=== PATIENT | male | born 1980 | race Caucasian/White ===

== ENCOUNTER 2024-02-26 20:55 | Emergency (ER) | payer OTHER ==
[2024-02-26] MEDS ORDERED: LIDOCAINE 1% MPF 5 ML VIAL ONE (21:17)
--- NOTE | 2024-02-26 21:28 | EDPHYS ---
Physician Documentation [facility] Name: Nuno Schafer Age: 43 yrs Sex: Male : 1980 Arrival Date: 02/26/2024 Time: 20:55 Bed 6 Private MD: ED Physician Trae Rasheed HPI: 02/25 23:43 This 43 yrs old Male presents to ER via Ambulatory with complaints of fishhook in scalp.kb 23:43 Pt is a 43 year old male who presents for a fishhook in the back of his scalp. States kb he was casting and accidentally hooked himself. Denies any other injury. Historical: - Allergies: 21:00 No Known Allergies; lg3 - Home Meds: 21:00 Zoloft Oral [Active]; levothyroxine oral [Active]; Lisinopril Oral [Active]; lg3 - PMHx: 21:00 HTN; Hypothyroidism; Anxiety; lg3 - PSHx: 21:00 knee; lg3 - Immunization history:: Adult Immunizations up to date, Last tetanus immunization: up to date. - Infectious Disease History:: Denies. - Social history:: Smoking status: Patient denies any tobacco usage or history of. Patient/guardian denies using alcohol, street drugs. ROS: 23:42 Constitutional: As per HPI kb Exam: 23:42 Constitutional: This is a well developed, well nourished patient who is awake, alert, kb and in no acute distress. Head/Face: Normocephalic, atraumatic. ENT: Moist Mucous membranes Cardiovascular: Regular rate Respiratory: Respirations even and unlabored. No increased work of breathing. Talking in full sentences MS/ Extremity: Pulses equal, no cyanosis. Neurovascular intact. Full, normal range of motion. Neuro: Awake and alert, GCS 15, oriented to person, place, time, and situation. Moves all extremities. Normal gait. 23:42 Skin: injury, puncture(s), that are superficial, of the scalp, with fishhook, Vital Signs: 20:59 BP 162 / 96; Pulse 81; Resp 17 S; Temp 97.1(O); Pulse Ox 98% on R/A; Weight 97.52 kg lg3 (R); Height 6 ft. 1 in. (R); Pain 0/10; 20:59 Body Mass Index 28.37 (97.52 kg, 185.42 cm) lg3 20:59 Pain Scale: Adult lg3 Procedures: 23:43 Foreign Body Removal: a fishhook, from the scalp, by 2ml lidocaine injected, sujatha kb pushed through the scalp, cut off and hook removed. The patient tolerated the removal well. MDM: 21:01 Patient medically screened. kb 23:43 Data reviewed: vital signs, nurses notes. Counseling: I had a detailed discussion with kb the patient and/or guardian regarding the historical points, exam findings, and any diagnostic results supporting the discharge/admit diagnosis, the need for outpatient follow up, a family practitioner, to return to the emergency department if symptoms worsen or persist or if there are any questions or concerns that arise at home. Administered Medications: 21:20 Drug: Lidocaine Infiltration (1 %) 1 vials 5 ml Infiltration once; to bedside {Note: jb4 administered by ER provider..} Volume: 5 ml; Route: Infiltration; Disposition Summary: 02/26/24 21:28 Discharge Ordered Notes: Location: Home kb Condition: Stable kb Diagnosis - Puncture wound with foreign body of scalp, initial encounter kb Followup: kb - With: Emergency Department - When: As needed - Reason: Worsening of condition Followup: kb - With: Private Physician - When: 2 - 3 days - Reason: Recheck today's complaints, Continuance of care, Re-evaluation by your physician Discharge Instructions: - Discharge Summary Sheet kb - Puncture Wound, [id number] kb - Aucilla Removal kb Forms: - Medication Reconciliation Form kb - Antibiotic Education kb - Prescription Opioid Use kb - Patient Portal Instructions kb - Leadership Thank You Letter kb Addendum: 02/28/2024 01:17 I was immediately available for consultation during this patient's visit. I did not e c2 personally see the patient or discuss the patient with the LORNA. . Signatures: Shae Eaton, NICOLE FR[place]-Ezequiel Fraser, RN RN jb4 Bhakti Gold RN RN lg3 Trae Rasheed MD MD ec2
--- NOTE | 2024-02-26 21:28 | ER ---
Nurse's Notes [facility] Name: Nuno Schafer Age: 43 yrs Sex: Male : 1980 Arrival Date: 02/26/2024 Time: 20:55 Bed 6 Private MD: Diagnosis: Puncture wound with foreign body of scalp, initial encounter Presentation: 02/25 20:59 Chief complaint: Patient states: fish hook to back of scalp. bleeding controlled. lg3 Coronavirus screen: Client denies travel out of the [place] in the last 14 days. At this time, the client does not indicate any symptoms associated with coronavirus-19. Ebola Screen: No symptoms or risks identified at this time. Initial Sepsis Screen: Does the patient meet any 2 criteria? No. Patient's initial sepsis screen is negative. Does the patient have a suspected source of infection? No. Patient's initial sepsis screen is negative. Risk Assessment: Do you want to hurt yourself or someone else? Patient reports no desire to harm self or others. Onset of symptoms was February 26, 2024. 20:59 Method Of Arrival: Ambulatory lg3 20:59 Acuity: SATNAM 4 lg3 Triage Assessment: 21:00 General: Appears in no apparent distress. comfortable, Behavior is calm, cooperative. lg3 Pain: Denies pain. EENT: No deficits noted. No signs and/or symptoms were reported regarding the EENT system. Neuro: No deficits noted. Curtis Agitation-Sedation Scale (RASS): 0 - Alert and Calm Level of Consciousness is awake, alert, obeys commands, Oriented to person, place, time, situation. Cardiovascular: No deficits noted. Denies chest pain, shortness of breath, Capillary refill < 3 seconds Clubbing of nail beds is absent JVD is absent Patient's skin is warm and dry. Respiratory: No deficits noted. Airway is patent Respiratory effort is even, unlabored, Respiratory pattern is regular, symmetrical. GI: No deficits noted. No signs and/or symptoms were reported involving the gastrointestinal system. : No deficits noted. No signs and/or symptoms were reported regarding the genitourinary system. Derm: Skin is intact, is healthy with good turgor, Skin is dry, Skin is normal, Skin temperature is cool Wound noted scalp. Musculoskeletal: No deficits noted. No signs and/or symptoms reported regarding the musculoskeletal system. Circulation, motion, and sensation intact. Range of motion: intact in all extremities. Historical: - Allergies: 21:00 No Known Allergies; lg3 - Home Meds: 21:00 Zoloft Oral [Active]; levothyroxine oral [Active]; Lisinopril Oral [Active]; lg3 - PMHx: 21:00 HTN; Hypothyroidism; Anxiety; lg3 - PSHx: 21:00 knee; lg3 - Immunization history:: Adult Immunizations up to date, Last tetanus immunization: up to date. - Infectious Disease History:: Denies. - Social history:: Smoking status: Patient denies any tobacco usage or history of. Patient/guardian denies using alcohol, street drugs. Screenin:12 [facility] ED Fall Risk Assessment (Adult) History of falling in the last 3 months, jb4 including since admission No falls in past 3 months (0 pts) Confusion or Disorientation No (0 pts) Intoxicated or Sedated No (0 pts) Impaired Gait No (0 pts) Mobility Assist Device Used No (0 pt) Altered Elimination No (0 pt) Score/Fall Risk Level 0 - 2 = Low Risk Oriented to surroundings, Maintained a safe environment. Abuse screen: Denies threats or abuse. Nutritional screening: No deficits noted. Tuberculosis screening: No symptoms or risk factors identified. Assessment: 21:12 General: Appears in no apparent distress. comfortable, Behavior is calm, cooperative, jb4 appropriate for age. Pain: Denies pain. Neuro: Level of Consciousness is awake, alert, obeys commands, Oriented to person, place, time, situation. Cardiovascular: Patient's skin is warm and dry. Respiratory: Airway is patent Respiratory effort is even, unlabored, Respiratory pattern is regular, symmetrical. GI: No signs and/or symptoms were reported involving the gastrointestinal system. : No signs and/or symptoms were reported regarding the genitourinary system. EENT: No signs and/or symptoms were reported regarding the EENT system. Derm: Skin is intact, Skin is pink, warm \T\ dry. Musculoskeletal: Circulation, motion, and sensation intact. Range of motion: intact in all extremities. Injury Description: fish hook in the back of scalp. Vital Signs: 20:59 BP 162 / 96; Pulse 81; Resp 17 S; Temp 97.1(O); Pulse Ox 98% on R/A; Weight 97.52 kg lg3 (R); Height 6 ft. 1 in. (R); Pain 0/10; 20:59 Body Mass Index 28.37 (97.52 kg, 185.42 cm) lg3 20:59 Pain Scale: Adult lg3 ED Course: 20:59 Patient arrived in ED. lg3 21:00 Triage completed. lg3 21:00 Arm band placed on right wrist. lg3 21:01 Shae Eaton FNP-C is [facility]. kb 21:01 Trae Rasheed MD is Attending Physician. kb 21:02 Ezequiel Aguilar, RN is Primary Nurse. jb4 21:12 Patient has correct armband on for positive identification. Bed in low position. Call jb4 light in reach. Side rails up X 1. Provided Education on: plan of care. 21:12 Patient did not have IV access during this emergency room visit. jb4 21:34 No provider procedures requiring assistance completed. jb4 Administered Medications: 21:20 Drug: Lidocaine Infiltration (1 %) 1 vials 5 ml Infiltration once; to bedside {Note: jb4 administered by ER provider..} Volume: 5 ml; Route: Infiltration; Medication: 21:12 VIS not applicable for this client. jb4 Outcome: 21:28 Discharge ordered by MD. kb 21:34 Discharged to home ambulatory, jb4 21:34 Condition: stable 21:34 Discharge instructions given to patient, Instructed on discharge instructions, follow up and referral plans. Demonstrated understanding of instructions, follow-up care, 21:35 Patient left the ED. jb4 Signatures: Shae Eaton FNP-C FNP-Ezequiel Fraser, RN RN jb4 Bhakti Gold RN RN lg3
[2024-02-26 22:29] VITALS: BP 162/96; TEMP 97.1; O2SAT 98
== END 2024-02-26 21:35 | disposition home or self-care (01) ==
LOC: ER 20:55
DX: S01.04XA Puncture wound with foreign body of scalp, initial encounter (principal)
CPT/HCPCS: 99283; J2001

== ENCOUNTER 2024-07-14 08:24 | Emergency (ER) | payer OTHER ==
[2024-07-14 08:58] LABS: Absolute Eosinophils 0.1 K/uL (0-0.5); Absolute Lymphocytes (CBC) 2.7 K/uL (0.7-4.9); Absolute Monocytes 0.5 K/uL (0.1-1.3); Absolute Neutrophil 3.1 K/uL (1.8-8.0); Basophils % 0.5 % (0-1.3); Eosinophils % 1.4 % (0-4.4); Hematocrit 42.3 % (39.6-49.0); Hemoglobin 14.2 g/dL (13.6-17.9); Lymphocytes % 42.3 % (15.3-44.8); MCH 31.3 pg (27.0-35.0); MCHC 33.5 g/dL (32.0-36.0); MCV 93.5 fL (80-100); MPV 8.2 fL (7.6-11.3); Neutrophils % 47.8 % (41.7-73.7); Platelets 237 thou/uL (152-406); RBC Red Blood Cell Count 4.53 M/uL (4.33-5.43); Red Cell Distribution Width 13.8 % (12.1-15.2)
[2024-07-14] MEDS ORDERED: KETOROLAC 30 MG/ML INJ ONE ×2 (08:59→11:51)
[2024-07-14] MEDS ORDERED: ONDANSETRON 4 MG/2 ML VIAL ONE ×2 (08:59→11:54)
[2024-07-14] MEDS ORDERED: MORPHINE 4 MG/ML SYR ONE ×2 (08:59→11:52)
[2024-07-14] MEDS ORDERED: NA CHLORIDE 0.9% 1,000 ML ONE (09:00)
[2024-07-14 09:14] LABS: Albumin 4.3 g/dL (3.4-5.0); Albumin/Globulin Ratio 1.1 (1.1-1.8); Anion Gap 10.2 mEq/L (5.0-15.0); Bilirubin Total 0.7 mg/dL (0.2-1.0); Globulin 3.8 g/dL (2.3-3.5); Potassium 4.2 mEq/L (3.5-5.1); Protein, Total 8.1 g/dL (6.4-8.2)
--- NOTE | 2024-07-14 09:15 | RAD REPORT ---
EXAMINATION: CT ABDOMEN AND PELVIS WITHOUT CONTRAST CLINICAL INDICATION: L side abd pain TECHNIQUE: CT abdomen and pelvis was performed, without IV contrast, as per department protocol. Axia l, sagittal and coronal reconstructions were obtained. One or more of the following dose reduction techniques were used: Automated exposure control, adjustment of the mA and kV according to the patien t size, and iterative reconstruction. Unless otherwise specified, incidental findings do not require dedicated imaging follow-up. COMPARISON: No prior exam. FINDINGS: The lack of intravenous contrast limits the sensitivity of this exam for evaluation of solid visceral organs, vascular structures, and retroperitoneum. LOWER CHEST: The visualized lung bases are clear. LIVER: Diffuse fatty liver. SPLEEN: Normal size. No focal lesion. PANCREAS: No mass, ductal dilation, or marty-pancreatic fluid. ADRENALS: Normal; no mass. KIDNEYS AND URETERS: Mild left hydronephrosis and hydroureter. This is likely caused by a 2 mm stone recently passed and now located in the urinary bladder. No right-sided stone or hydronephrosis. URINARY BLADDER: Normal contour. GASTROINTESTINAL TRACT: No evidence of bowel obstruction, significant free fluid, free air or abscess . APPENDIX: Normal appendix. LYMPH NODES: No lymphadenopathy. MUSCULOSKELETAL: No acute or suspicious osseous abnormality. ADDITIONAL FINDINGS: None. IMPRESSION: Suspected recently passed 2 mm stone in the urinary bladder, likely passed from the left tract wer e mild left-sided residual hydronephrosis is seen.
[2024-07-14] MEDS ORDERED: FENTANYL CITR 100 MCG/2 ML ONE (09:26)
[2024-07-14 11:17] LABS: Specific Gravity 1.025 (1.005-1.030); Sqamous Epithelial <5 /HPF (None Seen); Urine Bacteria None Seen /HPF (<20); Urine Bilirubin NEGATIVE (Negative); Urine Blood Trace (Negative); Urine Clarity Extremely Turbid (Clear); Urine Color Light-Yellow (Yellow); Urine Culture Reflex Order NOT NEEDED; Urine Glucose NEGATIVE (Negative); Urine Ketones NEGATIVE (Negative); Urine Microscopic Reflex YN ORDER UMIC; Urine Mucus Slight /HPF (None Seen); Urine Nitrite NEGATIVE (Negative); Urine Protein TRACE (Negative); Urine RBC <5 /HPF (None Seen); Urine Urobilinogen Normal (Normal); Urine WBC <5 /HPF (<5); Urine pH 5.5 (5.0-7.0)
--- NOTE | 2024-07-14 12:07 | ER ---
Nurse's Notes [facility] Name: Nuno Schafer Age: 43 yrs Sex: Male : 1980 Arrival Date: 07/14/2024 Time: 08:24 Bed 5 Private MD: Diagnosis: Calculus of ureter Presentation: 07/14 08:37 Chief complaint: Patient states: he started having left lower abdominal pain that ap3 started suddenly this morning when driving his kids to school. patient rates his pain as a 10/10 on the pain scale at this time. patient also reports vomiting x's 2 CREW BOSS. Coronavirus screen: At this time, the client does not indicate any symptoms associated with coronavirus-19. Ebola Screen: No symptoms or risks identified at this time. Initial Sepsis Screen: Does the patient meet any 2 criteria? No. Patient's initial sepsis screen is negative. Does the patient have a suspected source of infection? No. Patient's initial sepsis screen is negative. Risk Assessment: Do you want to hurt yourself or someone else? Patient reports no desire to harm self or others. Onset of symptoms was July 14, 2024. Transition of care: patient was not received from another setting of care. 08:37 Method Of Arrival: Ambulatory ap3 08:37 Acuity: SATNAM 3 ap3 Triage Assessment: 08:42 General: Appears uncomfortable, Behavior is calm, cooperative, appropriate for age. ap3 Pain: Complains of pain in left lower quadrant Pain currently is 10 out of 10 on a pain scale. Pain began suddenly. Pain: Also complains of nausea. Neuro: Level of Consciousness is awake, alert, obeys commands. Cardiovascular: Patient's skin is warm and dry. Respiratory: Airway is patent Respiratory effort is even, unlabored, Respiratory pattern is regular, symmetrical. GI: Reports lower abdominal pain, nausea, vomiting. Historical: - Allergies: 08:41 No Known Allergies; ap3 - PMHx: 08:41 Anxiety; HTN; Hypothyroidism; ap3 - PSHx: 08:41 knee; ap3 - Immunization history:: Adult Immunizations unknown. - Infectious Disease History:: Denies. - Social history:: Smoking status: Patient denies any tobacco usage or history of. Screenin:42 [facility] ED Fall Risk Assessment (Adult) History of falling in the last 3 months, ap3 including since admission No falls in past 3 months (0 pts) Confusion or Disorientation No (0 pts) Intoxicated or Sedated No (0 pts) Impaired Gait No (0 pts) Mobility Assist Device Used No (0 pt) Altered Elimination No (0 pt) Score/Fall Risk Level 0 - 2 = Low Risk Oriented to surroundings, Maintained a safe environment, Educated pt \T\ family on fall prevention, incl call for assistance when getting out of bed, Assessed \T\ reinforced patient's understanding of fall precautions, Hourly rounding (assess needs \T\ fall precautionary measures) done, Used ambulatory aids as needed (educated on \T\ assisted with), Used gait belt as appropriate. Abuse screen: Denies threats or abuse. Nutritional screening: No deficits noted. Tuberculosis screening: No symptoms or risk factors identified. Assessment: 09:00 General: Appears in no apparent distress. uncomfortable, well groomed, Behavior is ph calm, cooperative. Pain: Complains of pain in left lower quadrant Pain began suddenly. Neuro: Level of Consciousness is awake, alert, obeys commands, Oriented to person, place, time, situation. Cardiovascular: Capillary refill < 3 seconds in bilateral fingers Patient's skin is warm and dry. Respiratory: Airway is patent Respiratory effort is even, unlabored. GI: Abdomen is non-distended, Reports lower abdominal pain, nausea, vomiting. : Reports pain in left lower quadrant(s). Derm: Skin is pink, warm \T\ dry. 12:26 Reassessment: Patient appears in no apparent distress at this time. Patient and/or ph family updated on plan of care and expected duration. Pain level reassessed. Patient is alert, oriented x 3, equal unlabored respirations, skin warm/dry/pink. Patient states feeling better. Vital Signs: 08:37 BP 168 / 102; Pulse 66; Resp 18; Temp 97.9(O); Pulse Ox 99% on R/A; Weight 97.52 kg; ap3 Height 72 in. ; Pain 10/10; 09:54 BP 148 / 99; Pulse 63; Resp 18; Pulse Ox 99% on R/A; ph 11:00 BP 138 / 77; Pulse 61; Resp 18; Pulse Ox 99% on R/A; ph 12:00 BP 129 / 87; Pulse 68; Resp 19; Temp 98; Pulse Ox 100% on R/A; ph 08:37 Body Mass Index 29.16 (97.52 kg, 182.88 cm) ap3 08:37 Pain Scale: Adult ap3 ED Course: 08:27 Patient arrived in ED. mg5 08:28 Trae Rasheed MD is Attending Physician. ec2 08:41 Triage completed. ap3 08:43 Arm band placed on right wrist. ap3 08:50 CBC with Diff Sent. em1 08:50 CMP Sent. em1 08:50 Lipase Sent. em1 08:50 Initial lab(s) drawn, by wa, sent to lab. Inserted saline lock: 20 gauge in right em1 antecubital area, using aseptic technique. Blood collected. Flushed with 10 mL NS. 08:56 India Gillis, BRANDO is Primary Nurse. ph 09:03 CT Abd/Pelvis - Without Contrast In Process Unspecified. EDMS 09:55 Patient has correct armband on for positive identification. Bed in low position. Call ph light in reach. Side rails up X 1. Pulse ox on. NIBP on. Door closed. Noise minimized. Warm blanket given. Pillow given. 12:06 Pedro Tolliver MD is Referral Physician. ec2 12:28 No provider procedures requiring assistance completed. IV discontinued, intact, ph bleeding controlled, No redness/swelling at site. Pressure dressing applied. Administered Medications: 09:00 Drug: TORadol - Ketorolac IVP 15 mg IVP once Route: IVP; Site: right antecubital; ph 09:30 Follow up: Response: No adverse reaction; Pain is unchanged, physician notified ph 09:00 Drug: Ondansetron IVP 4 mg IVP once; over 2 minutes Route: IVP; Site: right antecubital;ph 09:30 Follow up: Response: No adverse reaction; Nausea is decreased ph 09:00 Drug: morphine IVP or IV 4 mg IVP once over 4 mins Route: IVP; Infused Over: 4 mins; ph Site: right antecubital; 09:30 Follow up: Response: No adverse reaction; Pain is unchanged, physician notified ph 09:00 Drug: NS 0.9% IV 1000 ml IV at 1 bolus Per protocol; to be given as a bolus over 60 ph minutes Route: IV; Rate: 1 bolus; Site: right antecubital; 10:30 Follow up: Response: No adverse reaction; IV Status: Completed infusion; IV Intake: ph 1000ml 09:36 Drug: fentaNYL (PF) IVP 100 mcg IVP once Route: IVP; Site: right antecubital; ph 09:56 Follow up: Response: No adverse reaction; Pain is decreased; RASS: Alert and Calm (0) ph 11:59 Drug: morphine IVP or IV 4 mg IVP once over 4 mins Route: IVP; Infused Over: 4 mins; ph Site: right antecubital; 12:27 Follow up: Response: No adverse reaction; Pain is decreased; RASS: Alert and Calm (0) ph 11:59 Drug: Ketorolac IVP 15 mg IVP once Route: IVP; Site: right antecubital; ph 12:27 Follow up: Response: No adverse reaction; Pain is decreased ph Medication: 09:55 VIS not applicable for this client. ph Intake: 10:30 IV: 1000ml; Total: 1000ml. ph Outcome: 12:06 Discharge ordered by . ec2 12:28 Discharged to home ambulatory, with significant other, ph 12:28 Condition: good 12:28 Discharge instructions given to patient, significant other, Instructed on discharge instructions, follow up and referral plans. medication usage, Demonstrated understanding of instructions, follow-up care, medications, Prescriptions given X 3, 12:28 Patient left the ED. ph Signatures: Dispatcher [employer] Margarito Brooks em1 India Gillis RN RN Kathryn Arriaga RN RN ap3 Abby Martinez mg5 Trae Rasheed MD MD ec2 Corrections: (The following items were deleted from the chart) 09:39 09:38 Ondansetron IVP 4 mg IVP in right antecubital ph ph 09:39 09:38 TORadol - Ketorolac IVP 15 mg IVP in right antecubital ph ph 09:39 09:39 morphine IVP or IV 4 mg IVP in right antecubital over 4 mins ph ph 09:40 09:38 NS 0.9% IV 1000 ml IV at 1 bolus in right antecubital ph ph
--- NOTE | 2024-07-14 12:07 | EDPHYS ---
Physician Documentation [facility] Name: Nuno Schafer Age: 43 yrs Sex: Male : 1980 Arrival Date: 07/14/2024 Time: 08:24 Bed 5 Private MD: ED Physician Trae Rasheed HPI: 07/14 08:46 This 43 yrs old Male presents to ER via Ambulatory with complaints of ec2 Vomiting. 08:46 Patient arrives today for evaluation of nausea and vomiting along with left-sided ec2 abdominal pain. Patient reports that he has been having pain since earlier this morning, states that it was sudden onset, reports no urinary complaints, history of diverticulitis, denies previous abdominal surgeries. . Historical: - Allergies: 08:41 No Known Allergies; ap3 - PMHx: 08:41 Anxiety; HTN; Hypothyroidism; ap3 - PSHx: 08:41 knee; ap3 - Immunization history:: Adult Immunizations unknown. - Infectious Disease History:: Denies. - Social history:: Smoking status: Patient denies any tobacco usage or history of. ROS: 08:46 Constitutional: as per hpi ec2 Exam: 08:46 Constitutional: GEN: NAD Head: atraumatic Eyes: EOMI Ears: External ears are ec2 normal. CV: regular rate LUNGS: no respiratory distress ABD: non-distended, soft, tender left abdomen, no flank TTP, not guarding, not rigid SKIN: no evidence of rashes MSK: no evidence of trauma Vital Signs: 08:37 BP 168 / 102; Pulse 66; Resp 18; Temp 97.9(O); Pulse Ox 99% on R/A; Weight 97.52 kg; ap3 Height 72 in. ; Pain 10/10; 09:54 BP 148 / 99; Pulse 63; Resp 18; Pulse Ox 99% on R/A; ph 11:00 BP 138 / 77; Pulse 61; Resp 18; Pulse Ox 99% on R/A; ph 12:00 BP 129 / 87; Pulse 68; Resp 19; Temp 98; Pulse Ox 100% on R/A; ph 08:37 Body Mass Index 29.16 (97.52 kg, 182.88 cm) ap3 08:37 Pain Scale: Adult ap3 MDM: 08:46 Data reviewed: vital signs. ED course: Patient arrives today for evaluation of ec2 left-sided abdominal pain. Examination remarkable for abdominal findings as above. Will obtain lab work, urine studies, CT imaging. Differential includes processes such as diverticulitis, ureteral stone, appendicitis. 09:22 ED course: Metabolic profile shows renal dysfunction with a creatinine of 1.73. CBC ec2 reassuring. Lipase within normal ranges. CT of the abdomen pelvis shows likely recently passed 2 mm stone. Pending urine study . 12:06 Patient medically screened. ec2 07/14 08:41 Order name: CBC with Diff; Complete Time: 09:21 ec2 07/14 08:41 Order name: CMP; Complete Time: 09:21 ec2 07/14 08:41 Order name: Lipase; Complete Time: 09:21 ec2 07/14 08:41 Order name: Urinalysis w/ reflexes; Complete Time: 11:22 ec2 07/14 08:41 Order name: CT Abd/Pelvis - Without Contrast; Complete Time: 09:21 ec2 07/14 08:41 Order name: IV Saline Lock; Complete Time: 08:50 ec2 07/14 08:41 Order name: Labs collected and sent; Complete Time: 08:50 ec2 Administered Medications: 09:00 Drug: TORadol - Ketorolac IVP 15 mg IVP once Route: IVP; Site: right antecubital; ph 09:30 Follow up: Response: No adverse reaction; Pain is unchanged, physician notified ph 09:00 Drug: Ondansetron IVP 4 mg IVP once; over 2 minutes Route: IVP; Site: right antecubital;ph 09:30 Follow up: Response: No adverse reaction; Nausea is decreased ph 09:00 Drug: morphine IVP or IV 4 mg IVP once over 4 mins Route: IVP; Infused Over: 4 mins; ph Site: right antecubital; 09:30 Follow up: Response: No adverse reaction; Pain is unchanged, physician notified ph 09:00 Drug: NS 0.9% IV 1000 ml IV at 1 bolus Per protocol; to be given as a bolus over 60 ph minutes Route: IV; Rate: 1 bolus; Site: right antecubital; 10:30 Follow up: Response: No adverse reaction; IV Status: Completed infusion; IV Intake: ph 1000ml 09:36 Drug: fentaNYL (PF) IVP 100 mcg IVP once Route: IVP; Site: right antecubital; ph 09:56 Follow up: Response: No adverse reaction; Pain is decreased; RASS: Alert and Calm (0) ph 11:59 Drug: morphine IVP or IV 4 mg IVP once over 4 mins Route: IVP; Infused Over: 4 mins; ph Site: right antecubital; 12:27 Follow up: Response: No adverse reaction; Pain is decreased; RASS: Alert and Calm (0) ph 11:59 Drug: Ketorolac IVP 15 mg IVP once Route: IVP; Site: right antecubital; ph 12:27 Follow up: Response: No adverse reaction; Pain is decreased ph Disposition Summary: 07/14/24 12:06 Discharge Ordered Notes: Location: Home ec2 Condition: Stable ec2 Diagnosis - Calculus of ureter ec2 Followup: ec2 - With: Private Physician - When: - Reason: Re-evaluation by your physician Followup: ec2 - With: Pedro Tolliver MD - When: - Reason: Recheck today's complaints Discharge Instructions: - Discharge Summary Sheet ec2 - Kidney Stones, [id number] ec2 Forms: - Medication Reconciliation Form ec2 - Antibiotic Education ec2 - Prescription Opioid Use ec2 - Patient Portal Instructions ec2 - Leadership Thank You Letter ec2 Prescriptions: - acetaminophen-codeine 300-30 mg Oral tablet - take 1 tablet ORAL route every 8 hours; 10 tablet; Refills: 0, Product ec2 Selection Permitted - tamsulosin 0.4 mg Oral capsule - take 1 capsule ORAL route daily; 14 capsule; Refills: 0, Product Selection ec2 Permitted - Zofran 4 mg Oral Tablet - take 1 tablet ORAL route every 12 hours As needed; 20 tablet; Refills: 0, ec2 Product Selection Permitted Signatures: Dispatcher [employer] [place] Soto RN RN ph Kathryn Arriaga RN RN ap3 Trae Rasheed MD MD ec2
[2024-07-14 13:27] VITALS: BP 129/87; TEMP 98; O2SAT 100
== END 2024-07-14 12:28 | disposition home or self-care (01) ==
LOC: ER 08:24
DX: N20.1 Calculus of ureter (principal); I10 Essential (primary) hypertension
CPT/HCPCS: 85025; 81001; 36415; 83690; 80053; 74176; J3010; J2405 ×2; J7030; 96361; 96374; 96375; 99284